=== PATIENT | female | born 1960 | race Caucasian/White ===

== ENCOUNTER → 2016-08-15 17:33 | Outpatient (CLI) | payer BC ==
[2014-05-08 13:59] VITALS: BMI 21.5
[~2016-08-15 17:33] MED LIST: HYDROCODONE-APA1 TAB PO; IBUPROFEN600 MG PO; PERCOCET 10/3251 TA1 PO; PHENERGAN25 M1 PO; SOMA350 MG PO; VALIUM10 MG PO; VIVELLE-DOT 00.05 MG TD
== END | disposition home or self-care (01) ==
LOC: D.MAMMO 07-20 09:30
DX: Z12.31 Encounter for screening mammogram for malignant neoplasm of breast (principal)

== ENCOUNTER → 2016-09-27 16:59 | Outpatient (CLI) | payer BC ==
[2014-05-08 13:59] VITALS: BMI 21.5
== END | disposition home or self-care (01) ==
LOC: D.MAMMO 09:00
DX: R92.8 Other abnormal and inconclusive findings on diagnostic imaging of breast (principal)

== ENCOUNTER 2019-01-24 09:00 | Outpatient (CLI) | payer OTHER ==
[2014-05-08 13:59] VITALS: BMI 21.5
== END 2019-01-24 10:00 | disposition home or self-care (01) ==
LOC: D.MAMMO 09:00
PROVIDERS: ATTEND Emergency Medicine
DX: Z12.31 Encounter for screening mammogram for malignant neoplasm of breast (principal)